=== PATIENT | female | born 1970 | race Caucasian/White ===

== ENCOUNTER → 2016-12-27 | Outpatient (CLI) | payer OTHER ==
[~2016-12-27] MED LIST: BUDE10.2 IH; IOHEXOL 180 MG/ML 10 ML VIAL. ONE; LEVO125T5 PO; LISI10TA2 PO; SIMV20TA3 PO; methylPREDNISolone ACETATE 40 MG/ML VIAL. ONE; methylPREDNISolone ACETATE 80 MG/ML VIAL. ONE
--- NOTE | 2016-12-28 00:41 | PAIN ---
DATE OF SERVICE: 12/27/2016 DIAGNOSES: Cervical radiculopathy with cervical spondylosis and cervical degenerative disk disease. HISTORY OF PRESENT ILLNESS: Ms. Plunkett is a 46-year-old female who returns for followup status post cervical epidural steroid injection x1, last seen on 09/27/2016. The patient did very well with this, reports near 98% improvement for several weeks, but the pain is returning now over the past few weeks to a month in the base of the neck and left shoulder. The patient reports her right shoulder is much better. It also has caused having some headaches lately with pain radiating to the left shoulder, more than the right at this time, worse with activity, working looking at the computer, changing positions, even raising her left arm over her head is causing some pain in the base of the neck and shoulders as well. The patient reports the pain is 7 on a scale of 10, describes it as aching and dull with some radiating pain into the left and right shoulders, again worse on the left side at this time. The patient reports no new motor or sensory deficits, no new complaints. PHYSICAL EXAMINATION: VITAL SIGNS: The patient's blood pressure is 136/94, pulse 81, respirations 18, temperature 97.6 degrees Fahrenheit, height is 5 feet 3 inches, weight 114 pounds. GENERAL: The patient is awake, alert, oriented, appropriate, very pleasant demeanor. HEENT: Shows normocephalic, atraumatic. Extraocular movements are intact and symmetrical. Oral cavity shows mucous membranes are moist and pink. Dentition is intact. NECK: Shows anterior throat supple without palpable lymphadenopathy noted. Swallow reflex is symmetrical. CHEST: Shows normal on inspection. Breath sounds are clear to auscultation bilaterally. HEART: Shows S1 and S2 clear. No murmurs auscultated. ABDOMEN: Soft, nontender, nondistended. No palpable organomegaly is noted. BACK: Shows spine grossly in midline. Neck shows normal cervical lordotic curvature. With palpation in the paraspinous musculature, is symmetrical, but is tender more significantly on the left than the right, especially into the lateral and medial trapezius on the left side compared to the right, but without atrophy, hypertrophy, no trigger points, no radiation of pain. The patient shows good rotational motion of cervical spine with some minor tenderness with extension, but not with forward flexion, right and left lateral rotation which was performed greater than 45 degrees as well. EXTREMITIES: Upper extremities showed deep tendon reflexes 2+ in the biceps and triceps tendons. Motor exam is approximately 4 on a scale of 5 with right shell fisherman strength and 5/5 on the left. Options were discussed with the patient. We will proceed with a second cervical epidural steroid injection today with fluoroscopic guidance. Risks were again discussed including, but not limited to bleeding, infection, possibility of epidural hematoma and subsequent neurological compromise, dural puncture, headaches, spinal cord and/or nerve damage, side effects of steroid medication and poor results regarding pain control. The patient understands and wishes to proceed. The patient will return to the clinic in approximately 2 weeks for followup, was counseled on return appointment, activity level and side effects to be aware of. DIAGNOSES: Cervical radiculopathy with cervical degenerative disk disease and cervical spondylosis. PROCEDURE: Cervical epidural steroid injection in translaminar approach at the C6-C7 level using C-arm fluoroscopic guidance under sterile prep and drape using local anesthetic. Medications injected 120 mg of Depo-Medrol plus 5 mL of preservative-free normal saline and 2 mL of Isovue for contrast. Condition at discharge is stable. The patient tolerated the procedure well, had no complications. TYREE SIDDIQUI MD DR: DOMITILA/alessandro JOB#: [id number] / [id number]
== END | disposition home or self-care (01) ==
LOC: PNCL 13:52
PROVIDERS: ATTEND Anesthesiology
DX: M50.123 Cervical disc disorder at C6-C7 level with radiculopathy (principal); M47.22 Other spondylosis with radiculopathy, cervical region
CPT/HCPCS: 62321; J1030; J1040

== ENCOUNTER → 2017-02-21 | Outpatient (CLI) | payer OTHER ==
--- NOTE | 2017-02-22 04:00 | PAIN ---
DATE OF SERVICE: 02/21/2017 PROGRESS NOTE FOR PAIN CLINIC DIAGNOSES: Cervical radiculopathy with cervical degenerative disk disease and cervical spondylosis. HISTORY OF PRESENT ILLNESS: The patient is a 46-year-old female, who returns for followup status post cervical epidural steroid injection x 2, the first in September and last one on 12/27/2016. The patient reports she did very well with these with near 100% improvement after the injection each time. The most recent one lasting until about the past 3 weeks, but she still has significant pain in the base of the neck and shoulders, somewhat more on the left than the right. On exam today, in bilateral upper extremities and shoulders radiating to the arms, there is some tingling and numbness in the forearm and hand. The patient reports no new motor or sensory deficits, no new bowel or bladder incontinence or other complaints, but there is still significant pain rated at 8 on scale of 10, worse at 4 on a scale of 10 currently. The patient reports it awakens her from sleep occasionally, but not every night, has been repositioned to get back to sleep, but she is able to do so. The patient reports no new changes or other deficits. PHYSICAL EXAMINATION: VITAL SIGNS: The patient's blood pressure 121/84, pulse is 78, respirations are 18, temperature is 97.9 degrees Fahrenheit. Height is 5 feet 3 inches, weight 356 pounds. GENERAL: The patient is awake, alert, oriented, appropriate, very pleasant demeanor. HEENT: Head shows normocephalic, atraumatic. Extraocular movements are intact and symmetrical. Oral cavity, mucous membranes moist and pink. Dentition is intact. NECK: Shows anterior throat supple without palpable lymphadenopathy noted. Swallow reflex is symmetrical. CHEST: Shows normal on inspection. Breath sounds clear to auscultation bilaterally. HEART: Shows S1 and S2 clear. ABDOMEN: Soft, nontender, nondistended. No palpable organomegaly. No rebound or guarding demonstrated. BACK: Shows spine grossly midline with cervical paraspinous musculature showing as symmetrical on inspection with palpation shows some [id number] tenderness in the inferior aspect of cervical paraspinous muscles, but only diffusely without radiation or asymmetry, no atrophy, hypertrophy, also in the superior medial trapezius some minor tenderness, slightly more on the left than the right with palpation beginning no trigger points or radiation. The patient has good rotational motion of cervical spine, both laterally as well as extension and flexion without significant increase in pain. EXTREMITIES: Upper extremities showed deep tendon reflexes at 2+ in the biceps and triceps tendons. Motor exam is approximately 4 on a scale of 5 with right differential specialist and 5/5 on the left. Options were discussed with the patient. We will proceed with a third in the series of cervical epidural steroid injection today with fluoroscopic guidance. Risks were then discussed including, but not limited to bleeding, infection, possibility of epidural hematoma, subsequent neurologic compromise, dural puncture, headaches, spinal cord and/or nerve damage, side effects of steroid medication and poor results regarding pain control. The patient understands and wishes to proceed. The patient will return to clinic in approximately 2 weeks for followup, was counseled on return appointment, activity level and side effects to be aware of. DIAGNOSES: Cervical radiculopathy with cervical degenerative disk disease and cervical spondylosis. PROCEDURE: Cervical epidural steroid injection in translaminar approach at C6-C7 level using C-arm fluoroscopic guidance, after sterile prep and drape using local anesthetic. MEIDCATION INJECTED: Depo-Medrol 120 mg plus 5 mL of preservative-free normal saline and 2 mL of Isovue for contrast. CONDITION AT DISCHARGE: Stable. The patient tolerated procedure well, had no complications. TYREE SIDDIQUI MD DR: DOMITILA/alessandro JOB#: [id number] / [id number]
== END | disposition home or self-care (01) ==
LOC: PNCL 13:06
PROVIDERS: ATTEND Anesthesiology
DX: M50.123 Cervical disc disorder at C6-C7 level with radiculopathy (principal); M47.22 Other spondylosis with radiculopathy, cervical region
CPT/HCPCS: 62321; J1030; J1040

== ENCOUNTER → 2017-04-18 | Outpatient (CLI) | payer OTHER | END | disposition home or self-care (01) | LOC: PNCL 13:29 | PROVIDERS: ATTEND Anesthesiology | DX: M50.10 Cervical disc disorder with radiculopathy, unspecified cervical region (principal); M47.22 Other spondylosis with radiculopathy, cervical region; Z88.2 Allergy status to sulfonamides; Z88.8 Allergy status to other drugs, medicaments and biological substances | CPT/HCPCS: 62321; J1030; J1040 ==

== ENCOUNTER → 2017-05-23 | Outpatient (CLI) | payer OTHER ==
--- NOTE | 2017-05-23 19:34 | PAIN ---
DATE OF SERVICE: 05/23/2017 DIAGNOSES: Cervical radiculopathy with cervical degenerative disk disease and cervical spondylosis. HISTORY OF PRESENT ILLNESS: The patient is a 46-year-old female who returns for followup status post cervical epidural steroid injection x 1 on 04/18/2017. The patient reports she did quite well after the injection. Reports no new motor or sensory deficits or other complaints, but the pain is only reduced by about 40%. The patient reports much more significant pain reduction on her first injection as compared to the second one, but still pain in the base of the neck; more on the left side than right in the left arm. The tingling and numbness in the arm is not as bad as it was, but still has some burning, sharp pain in the back of the neck and shoulder on the left side, worse with reaching over her head in the shoulder itself. The patient reports the pain as a 9 on a scale of 10 as worst, is a 6 on average, is a 4 on a scale of 10 at its least. Pain is a 4 on a scale 10 today. The patient reports no new motor or sensory deficits, no new bowel or bladder incontinence. The patient reports it awakens her from sleep; sleeps up to 3-4 hours a night and it wakes her up. She has to reposition, to get out of bed, changing positions, or take pain medications help decrease the pain and then she is able to get back to sleep. PHYSICAL EXAMINATION: VITAL SIGNS: Today, the patient's blood pressure is 102/76, pulse 87, respirations 18, temperature 98.2 degrees Fahrenheit, height is 5 feet 3 inches, weight 111 pounds. GENERAL: The patient is awake, alert, oriented, appropriate, very pleasant demeanor. HEENT: Head shows normocephalic, atraumatic. Extraocular movements are intact, symmetrical. Oral cavity, mucous membranes are moist and pink. Dentition is intact. NECK: Shows anterior throat supple without palpable lymphadenopathy noted. Swallow reflex is symmetrical. CHEST: Shows normal on inspection. Breath sounds are clear to auscultation bilaterally. HEART: Shows S1 and S2 clear. No murmurs are auscultated. ABDOMEN: Soft, nontender, nondistended. No palpable organomegaly is noted. BACK: Shows spine grossly midline. Cervical paraspinous muscle shows symmetrical musculature on inspection with palpation, shows moderate tenderness with palpation bilaterally, but only diffusely, more on the left than the right in the superior, medial, and lateral trapezius, also some tenderness over the left suprascapular region, but not the intrascapular region on the left side. Right side is nontender. The patient shows good rotational motion of cervical spine, both laterally as well as extension and flexion without significant difficulty or pain reported. EXTREMITIES: Upper extremities showed deep tendon reflexes at 2+ in the biceps and triceps tendons. Motor exam is strong with assistant chief engineer strength rated at 5/5 as is biceps and triceps flexion. Peripheral pulses are 2+ radial in distribution bilaterally. Options were discussed with the patient and the patient's old chart was reviewed as her current medication regimen updated. Current review of systems updated today as well. We will proceed with a second in the series of cervical epidural steroid injection with fluoroscopic guidance. Risks were again discussed including, but not limited to bleeding, infection, possibility of epidural hematoma and subsequent neurologic compromise, dural puncture, headaches, spinal cord and/or nerve damage, side effects of steroid medication and poor results regarding pain control. The patient understands and wishes to proceed. The patient will return to clinic in approximately 2 weeks for followup, was counseled on return appointment, activity level and side effects to be aware of. DIAGNOSES: Cervical radiculopathy with cervical degenerative disk disease and cervical spondylosis. PROCEDURE: Cervical epidural steroid injection in translaminar approach at the C6-C7 level using C-arm fluoroscopic guidance under sterile prep and drape with local anesthetic. MEDICATIONS INJECTED: Total 120 mg of Depo-Medrol plus 5 mL of preservative-free normal saline and 2 mL of Isovue for contrast. CONDITION AT DISCHARGE: Stable. The patient tolerated the procedure well, had no complications. TYREE SIDDIQUI MD DR: DOMITILA/alessandro JOB#: [id number] / [id number]
== END | disposition home or self-care (01) ==
LOC: PNCL 14:14
PROVIDERS: ATTEND Anesthesiology
DX: M51.16 Intervertebral disc disorders with radiculopathy, lumbar region (principal); M47.22 Other spondylosis with radiculopathy, cervical region; Z88.2 Allergy status to sulfonamides; Z88.8 Allergy status to other drugs, medicaments and biological substances
CPT/HCPCS: 62321; J1030; J1040

== ENCOUNTER → 2018-01-17 | Outpatient (CLI) | payer OTHER | END | disposition home or self-care (01) | LOC: KCIC 10:14 | DX: M79.89 Other specified soft tissue disorders (principal); M79.644 Pain in right finger(s) | CPT/HCPCS: 73140 ==

== ENCOUNTER → 2018-04-03 | Outpatient (CLI) | payer OTHER ==
[2018-04-03 13:02] LABS: ADD MAN DIFF? NO
[2018-04-03 13:09] LABS: BASO # 0.1 x10^3/uL (0.0-0.2); BASO % 1 % (0-3); EOS # 0.1 x10^3/uL (0.0-0.7); EOS % 1 % (0-3); HEMATOCRIT 41.1 % (36.0-47.0); HEMOGLOBIN 14.3 g/dL (12.0-15.5); LYMPH # 1.6 x10^3/uL (1.0-4.8); LYMPH % 24 % (24-48); MEAN CORPUSCULAR HEMOGLOBIN 35 pg (25-35); MEAN CORPUSCULAR HGB CONC 35 g/dL (31-37); MEAN CORPUSCULAR VOLUME 99 fL (79-100); MONO # 0.4 x10^3/uL (0.0-1.1); MONO % 5 % (0-9); NEUT # 4.9 x10^3uL (1.8-7.7); NEUT % 70 % (31-73); PLATELET COUNT 145 x10^3/uL (140-400); RED BLOOD COUNT 4.14 x10^6/uL (3.50-5.40); RED CELL DISTRIBUTION WIDTH 13.4 % (11.5-14.5)
[2018-04-03 13:20] LABS: ALBUMIN 4.1 g/dL (3.4-5.0); ALBUMIN/GLOBULIN RATIO 1.1 (1.0-1.7); ALK PHOS 96 U/L (46-116); ALT (SGPT) 31 U/L (14-59); ANION GAP 9 (6-14); AST (SGOT) 23 U/L (15-37); BLOOD UREA NITROGEN 8 mg/dL (7-20); BUN/CREATININE RATIO 11 (6-20); CALCIUM 9.5 mg/dL (8.5-10.1); CARBON DIOXIDE 27 mmol/L (21-32); CHLORIDE 99 mmol/L (98-107); CHOLESTEROL 243 mg/dL (0-200); CREATININE 0.7 mg/dL (0.6-1.0); GFR 90.1; GLUCOSE 102 mg/dL (70-99); HDLC 123 mg/dL (40-60); LDLC 113 mg/dL (0-100); NON-HDL CHOLESTEROL 120 mg/dL (0-129); POTASSIUM 3.8 mmol/L (3.5-5.1); SODIUM 135 mmol/L (136-145); TOTAL BILIRUBIN 0.5 mg/dL (0.2-1.0); TOTAL PROTEIN 7.8 g/dL (6.4-8.2); TRIGLYCERIDES 34 mg/dL (0-150); VLDLC 7 mg/dL (0-40)
[2018-04-03 13:54] LABS: THYROID STIM HORMONE (TSH) 0.008 uIU/mL (0.358-3.74)
[2018-04-03 13:54] LABS: FREE T4 1.76 ng/dL (0.76-1.46)
== END | disposition home or self-care (01) ==
LOC: LAB 12:48
DX: I10 Essential (primary) hypertension (principal); E03.9 Hypothyroidism, unspecified; E78.5 Hyperlipidemia, unspecified
CPT/HCPCS: 36415; 80053; 80061; 84439; 84443; 85025

== ENCOUNTER → 2018-11-28 | Outpatient (CLI) | payer OTHER ==
[~2018-11-28] MED LIST changes: -IOHEXOL 180 MG/ML 10 ML VIAL. ONE; -methylPREDNISolone ACETATE 40 MG/ML VIAL. ONE; -methylPREDNISolone ACETATE 80 MG/ML VIAL. ONE
--- NOTE | 2018-11-28 14:35 | RAD ---
MRI of the cervical spine without contrast 11/28/2018 CLINICAL HISTORY: Neck Pain. Bilateral arm and hand pain. TECHNIQUE: Unenhanced T1-weighted, T2-weighted and inversion recovery sagittal and gradient echo and T2-weighted axial images of the cervical spine were obtained. FINDINGS: Comparison study is dated 09/13/2016. Very mild lateral curvature of the cervical spine is seen convex to the left. There is straightening of the normal cervical lordosis. Degenerative signal changes are seen involving all of the disks of the cervical spine. Degenerative signal changes are seen within the marrow surrounding these discs. Loss of height of the C5-6 disc is noted. No area of abnormal signal intensity is seen involving the cervical spinal cord. A 6 mm hemangioma is seen involving the T3 vertebral body, unchanged. At the C2-3, C3-4 and C4-5 disc spaces there are minimal to mild generalized disc bulges. Degenerative changes are seen involving the uncovertebral and facet joints bilaterally. These findings when combined do not result in significant central spinal canal or neural foraminal stenosis. At the C5-6 disc space there is a mild generalized disc bulge. Degenerative changes are seen involving the uncovertebral and facet joints bilaterally. These findings efface the anterior and posterior CSF without resulting in significant central spinal canal stenosis. Mild to moderate left greater than right neural foraminal stenosis is seen. At the C6-7 disc space there is a mild generalized disc bulge. Degenerative changes are seen involving the uncovertebral and facet joints bilaterally. These findings do not result in significant central spinal canal or neural foraminal stenosis. At the C7-T1 disc space there is a minimal generalized disc bulge. Degenerative changes are seen involving the facet joints bilaterally. These findings do not result in significant central spinal canal or neural foraminal stenosis. The degenerative changes have increased slightly since the previous study. IMPRESSION: Degenerative changes are seen involving the cervical spine as outlined above. These findings do not result in significant central spinal canal stenosis at any level. Mild to moderate left greater than right neural foraminal stenosis is seen at C5-6. Electronically signed by: Eric Gilbert MD (11/28/2018 2:32 PM) [id number]
== END | disposition home or self-care (01) ==
LOC: MRI 10:39
PROVIDERS: ATTEND Orthopaedic Surgery
DX: M47.892 Other spondylosis, cervical region (principal); M48.02 Spinal stenosis, cervical region; D18.09 Hemangioma of other sites; G56.23 Lesion of ulnar nerve, bilateral upper limbs
CPT/HCPCS: 72141

== ENCOUNTER → 2020-06-11 | Outpatient (CLI) | payer OTHER ==
[~2020-06-11] MED LIST changes: +SIMV20TA18 PO; -SIMV20TA3 PO
[2020-06-11 10:31] LABS: BASO % 1 % (0-3); EOS # 0.1 x10^3/uL (0.0-0.7); EOS % 1 % (0-3); HEMATOCRIT 43.5 % (36.0-47.0); LYMPH # 1.2 x10^3/uL (1.0-4.8); LYMPH % 16 % (24-48); MEAN CORPUSCULAR HEMOGLOBIN 35 pg (25-35); MEAN CORPUSCULAR HGB CONC 35 g/dL (31-37); MEAN CORPUSCULAR VOLUME 102 fL (79-100); MONO # 0.3 x10^3/uL (0.0-1.1); MONO % 5 % (0-9); NEUT # 5.8 x10^3/uL (1.8-7.7); NEUT % 78 % (31-73); PLATELET COUNT 132 x10^3/uL (140-400); RED BLOOD COUNT 4.28 x10^6/uL (3.50-5.40); RED CELL DISTRIBUTION WIDTH 13.2 % (11.5-14.5); WHITE BLOOD COUNT 7.4 x10^3/uL (4.0-11.0)
[2020-06-11 10:48] LABS: ALBUMIN 4.2 g/dL (3.4-5.0); ALBUMIN/GLOBULIN RATIO 1.1 (1.0-1.7); CALCIUM 9.5 mg/dL (8.5-10.1); CHOLESTEROL/HDL RATIO 1.5; CREATININE 0.8 mg/dL (0.6-1.0); GFR 76.6; POTASSIUM 4.1 mmol/L (3.5-5.1); TOTAL BILIRUBIN 0.5 mg/dL (0.2-1.0); TOTAL PROTEIN 8.1 g/dL (6.4-8.2)
[2020-06-11 11:00] LABS: FREE T4 1.8 ng/dL (0.76-1.46); THYROID STIM HORMONE (TSH) 0.015 uIU/mL (0.358-3.74)
== END | disposition home or self-care (01) ==
LOC: LAB 10:04
PROVIDERS: ATTEND Family Medicine
DX: I10 Essential (primary) hypertension (principal); E03.9 Hypothyroidism, unspecified; E78.5 Hyperlipidemia, unspecified
CPT/HCPCS: 36415; 80053; 80061; 84439; 84443; 85025

== ENCOUNTER → 2020-08-25 | Outpatient (CLI) | payer OTHER ==
[2020-08-25 18:18] LABS: FREE T4 1.19 ng/dL (0.76-1.46); THYROID STIM HORMONE (TSH) 0.487 uIU/mL (0.358-3.74)
== END ==
LOC: RAD 15:22
PROVIDERS: ATTEND Family Medicine
DX: E03.9 Hypothyroidism, unspecified (principal); D78.89 Other postprocedural complications of the spleen
CPT/HCPCS: 36415; 82607; 82746; 84439; 84443

== ENCOUNTER → 2020-08-25 | Outpatient (CLI) | payer OTHER ==
--- NOTE | 2020-08-25 16:59 | RAD ---
Study: 1. CR LUMBAR SPINE MIN 4V 2. CR CERVICAL SPINE 5V Indication: Neck pain. Lumbar back pain. Comparison: Cervical spine MRI 11/28/2018; lumbar spine radiographs 03/20/2014 Findings: Cervical spine: Straightening of cervical lordosis with mild reversal centered at C5 in the setting of approximately 2 mm retrolisthesis of C5 on C6. Grade 1 anterolisthesis of C3 on C4. Advanced discogenic arthrosis at C5-C6. Relatively well-maintained disc space height elsewhere. Multilevel facet degeneration most pronounced from C5-C6 and below. Uncovertebral joint hypertrophy greatest at C5-C6. Moderate appearing osseous neural foraminal encroachment on the right at C5-C6 and mild on the left at C5-C6. Degenerative changes at the atlantodental interface. Normal atlantodental interval and alignment across the C1-C2 lateral masses. The partially assessed dens is intact. Within normal limits prevertebral soft tissue thickness. Unremarkable visualized lungs. Lumbar spine: Transitional lumbosacral anatomy. In keeping with the numbering scheme from the 2013 comparison, the last well-formed disc space is designated S1-S2 with partial lumbarization of S1 to include a pseudoarticulation on the left. Redemonstrated and unchanged straightening of lumbar lordosis. No change in vertebral body height. No significant disc space narrowing. No pars defect appreciated on the oblique views or severe osseous neural foraminal encroachment. Only minimal facet degeneration at a few levels. Impression: Cervical spine: 1. Redemonstrated age accelerated discogenic arthrosis and uncovertebral joint hypertrophy at C5-C6 as well as multilevel age accelerated facet degeneration. Resultant osseous neural foraminal encroachment suspected to be moderate on the right and mild on the left at C5-C6. 2. Mild retrolisthesis of C5 on C6 by approximately 2 mm has not appreciably changed. Minimal grade 1 anterolisthesis of C3 on C4. Lumbar spine: 1. Transitional lumbosacral anatomy as outlined above. 2. Minimal degenerative changes at the lower lumbar spine. No significant progression since the 2013 comparison. Electronically signed by: CLARITA TRUJILLO MD (08/25/2020 4:56 PM) [id number]
== END ==
LOC: RAD 15:39
PROVIDERS: ATTEND Family Medicine
DX: M47.812 Spondylosis without myelopathy or radiculopathy, cervical region (principal); M47.816 Spondylosis without myelopathy or radiculopathy, lumbar region; M43.12 Spondylolisthesis, cervical region
CPT/HCPCS: 72050; 72110